=== PATIENT | male | born 1960 | race Hispanic/Latino ===

== ENCOUNTER → 2019-04-19 | Outpatient (CLI) | payer BC | END | disposition home or self-care (01) | LOC: RAH 07:43 | PROVIDERS: ATTEND Orthopaedic Surgery | DX: M17.11 Unilateral primary osteoarthritis, right knee (principal); M71.21 Synovial cyst of popliteal space [Baker], right knee; Z96.652 Presence of left artificial knee joint | CPT/HCPCS: 73721 ==

== ENCOUNTER → 2019-05-19 | Outpatient (CLI) | payer BC | END | disposition home or self-care (01) | LOC: CANSCHCLI → RAH 12:31 | PROVIDERS: ATTEND Orthopaedic Surgery | DX: Z09 Encounter for follow-up examination after completed treatment for conditions other than malignant neoplasm (principal); M70.71 Other bursitis of hip, right hip; M17.11 Unilateral primary osteoarthritis, right knee; M25.561 Pain in right knee; S83.241A Other tear of medial meniscus, current injury, right knee, initial encounter; Z96.652 Presence of left artificial knee joint; X58.XXXA Exposure to other specified factors, initial encounter; Y93.89 Activity, other specified; Y92.89 Other specified places as the place of occurrence of the external cause; Y99.8 Other external cause status | CPT/HCPCS: 73721 ==